=== PATIENT | male | born 1980 | race Caucasian/White ===

== ENCOUNTER 2021-09-23 16:20 | Outpatient (REF) | payer OTHER, SELFPAY ==
--- NOTE | ~2021-09-23 | MR_ITS ---
EXAMINATION: MRI LEFT SHOULDER WITHOUT CONTRAST CLINICAL INFORMATION: Patient reports left shoulder and scapular pain. COMPARISON: None TECHNIQUE: MRI left shoulder was performed without contrast on a high-field MRI scanner FINDINGS: ROTATOR CUFF: Infraspinatus: Mild heterogeneity along the bursal side of the distal supraspinatus tendon, compatible with tendinosis and perhaps small areas of partial tearing but no measurable defect or tendon retraction. Muscle is normal. Remaining rotator cuff muscles and tendons are normal. BICEPS: Normal. CORACOACROMIAL ARCH: There is mild deformity of the distal clavicle likely related to old fracture subsequently healed. The acromioclavicular joint appears normal. Minimal concavity of the undersurface of the acromion without subacromial spur. BURSA: Normal. LABRUM/CAPSULE: There is a lobulated fluid collection along the anteroinferior aspect of the glenoid and extending between the inferior labrum and glenohumeral ligament attachment. GLENOHUMERAL JOINT: Normal. MR/MR shoulder LT wo con IMPRESSION: Mild abnormality of the supraspinatus tendon, compatible with tendinosis and perhaps small areas of partial tearing but no measurable defect or tendon retraction. Deformity of the distal clavicle likely reflects old clavicle fracture. Lobulated fluid collection, compatible synovial recess or more likely cyst/ganglion cyst abutting the anteroinferior glenoid juxtaposed between the labrum and capsule. This raises the question of a small MRI occult tear in the capsule or labrum.
== END 2021-09-23 16:21 | disposition home or self-care (01) ==
LOC: HO.MRI 16:20
PROVIDERS: Visit Provider Nurse Practitioner Family
DX: M25.512 Pain in left shoulder (principal)
CPT/HCPCS: 73221

== ENCOUNTER 2021-11-12 10:45 | Outpatient (REF) | payer OTHER, SELFPAY ==
--- NOTE | ~2021-11-12 | XR_ITS ---
EXAMINATION: XR WRIST, LEFT CLINICAL INFORMATION: Left wrist pain. COMPARISON: Outside left wrist radiographs dated 09/05/2021. TECHNIQUE: PA, lateral, oblique, and scaphoid views of the left wrist. FINDINGS: There appears to be a chronic scaphoid waist fracture with sclerosis along the fracture line. The distal pole appears anteriorly displaced. However, evaluation is limited on plain radiographs. No acute fracture or dislocation. No lytic or blastic osseous lesion. 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
== END 2021-11-12 10:46 | disposition home or self-care (01) ==
LOC: HO.HOSX 10:45
PROVIDERS: Visit Provider Orthopaedic Surgery
DX: S62.002K Unspecified fracture of navicular [scaphoid] bone of left wrist, subsequent encounter for fracture with nonunion (principal)
CPT/HCPCS: 73110; 99202